=== PATIENT | female | born 1995 | race Two or more races ===

== ENCOUNTER 2017-11-14 09:56 | Observation (INO) | payer OTHER ==
[2017-11-14] MEDS ORDERED: morphine CARPU-JECT 2 MG/1 ML DISP.SYRIN IVPUSH ONE (10:50)
[2017-11-14] MEDS ORDERED: ACETAMINOPHEN 1000 MG/100 ML VIAL (NON FORMULARY) IVPB ONE (10:51)
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
[2017-11-14] MEDS ORDERED: morphine CARPU-JECT 2 MG/1 ML DISP.SYRIN ONE ×2 (10:55→15:56)
[2017-11-14 11:15] LABS: BASO % 0.6 % (0-2.0); EOS % 1.1 % (0-4.5); HEMOGLOBIN 12.6 GM/dL (10.7-15.3); LYMPH % 13.5 % (8-40); MCH 26.4 pg (25.7-33.7); MCHC 33.1 g/dl (32.0-36.0); MEAN CELL VOLUME 79.7 fl (80-96); MONO % 4.8 % (3.8-10.2); PLATELET COUNT 293 K/MM3 (134-434); RBC 4.77 M/mm3 (3.60-5.2)
[2017-11-14 11:41] LABS: ALBUMIN 3.6 g/dl (3.4-5.0); ANION GAP 10 (8-16); BLOOD UREA NITROGEN 8 mg/dL (7-18); CALCIUM 8.9 mg/dL (8.5-10.1); CHLORIDE 106 mmol/L (98-107); CO2 21 mmol/L (21-32); CREATININE 0.5 mg/dL (0.55-1.02); GLUCOSE,RANDOM 90 mg/dL (74-106); POTASSIUM 4.1 mmol/L (3.5-5.1); SGOT/AST 15 U/L (15-37); SGPT/ALT 25 U/L (12-78); SODIUM 137 mmol/L (136-145)
[2017-11-14] MEDS ORDERED: morphine CARPU-JECT 4 MG/1 ML DISP.SYRIN IVPUSH ONE ×2 (11:49→15:55)
[2017-11-14] MEDS ORDERED: morphine SULFATE 4 MG/ML VIAL ONE (11:54)
[2017-11-14 11:59] LABS: ALK PHOS 73 U/L (45-117); BILIRUBIN,TOTAL 0.3 mg/dL (0.2-1.0); TOT PROT 7.9 g/dl (6.4-8.2)
--- NOTE | 2017-11-14 13:00 | PDOC ---
Attending Attestation - Resident Resident Name: Stanislav Diaz - ED Attending Attestation I have performed the following: I have examined & evaluated the patient, The case was reviewed & discussed with the resident, I agree w/resident's findings & plan, Exceptions are as noted - HPI HPI: 11/14/17 12:52 22 F @ 15 weeks presents to ED with lower back pain. Pt states she was cleaning last night when she felt a sharp pain in her R lower back. She states the pain shoots down her R leg. Pt also endorses numbness in her R leg. Denies weakness or numbness in her L leg. Pt states that she has h/o herniated discs. She denies incontinence or difficulty controlling bowel/bladder. Denies saddle anesthesia. - Physicial Exam PE: 11/14/17 13:00 "GENERAL: Awake, alert, and fully oriented, in no acute distress. HEAD: No signs of trauma EYES: PERRLA, EOMI, sclera anicteric, conjunctiva clear ENT: Auricles normal inspection, hearing grossly normal, nares patent, oropharynx clear without exudates. Moist mucosa NECK: Nontender, no stepoffs, Normal ROM, supple, no lymphadenopathy, JVD, or masses LUNGS: Breath sounds equal, clear to auscultation bilaterally. No wheezes, and no crackles HEART: Regular rate and rhythm, normal S1 and S2, no murmurs, rubs or gallops ABDOMEN: Soft, nontender, normoactive bowel sounds. No guarding, no rebound. No masses EXTREMITIES: Normal range of motion, no edema. No clubbing or cyanosis. No cords, erythema, or tenderness BACK: + R paraspinal tenderness in lumbar spine, no midline tenderness, no stepoffs NEUROLOGICAL: Cranial nerves II through XII intact. 5/5 strength and sensation in all extremities, Normal speech, normal gait, normal cerebellar function SKIN: Warm, Dry, normal turgor, no rashes or lesions noted. " - Medical Decision Making 11/14/17 13:00 22 F with R lower back pain after bending over. Likely sciatic nerve vs lumbar radiculopathy. No evidence of cauda equina or cord compression. - Pain control - Reassess Pt with intractable back pain s/p morphine 6mg IV. Will admit for further evaluation MRI L spine ordered
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
[2017-11-14 17:50] VITALS: BMI 35.4
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
[2017-11-14] MEDS: HEPARIN NA (PORCINE) 5,000 UNITS/ML 1ML VIAL SQ SCH (21:53)
[2017-11-14] MEDS: ACETAMINOPHEN 325 MG TABLET (FP) PO PRN (21:54)
[2017-11-15] MEDS: ACETAMINOPHEN 325 MG TABLET (FP) PO PRN (05:18)
[2017-11-15] MEDS: PRENATAL VITAMINS W/ FOLIC ACID TABLET (FP) PO SCH (09:39)
[2017-11-15] MEDS: HEPARIN NA (PORCINE) 5,000 UNITS/ML 1ML VIAL SQ SCH ×2 (09:39→21:21)
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
[2017-11-15] MEDS: ACETAMINOPHEN WITH CODEINE 300MG/30MG TABLET PO PRN ×2 (12:39→21:23)
--- NOTE | 2017-11-15 14:25 | PN ---
Progress Note, Physician - Current Medication List Current Medications: Active Medications Acetaminophen (Tylenol -) 650 mg PO Q6H PRN PRN Reason: FEVER Last Admin: 11/15/17 05:18 Dose: 650 mg Acetaminophen/Codeine Phosphate (Tylenol # 3 -) 1 tab PO Q6H PRN PRN Reason: PAIN LEVEL 1 - 3 Last Admin: 11/15/17 12:39 Dose: 1 tab Heparin Sodium (Porcine) (Heparin -) 5,000 unit SQ BID JN Last Admin: 11/15/17 09:39 Dose: 5,000 unit Multivit/Folic Acid/Iron ( Vitamins (Sjr) -) 1 tab PO DAILY [facility] Last Admin: 11/15/17 09:39 Dose: 1 tab - Objective Vital Signs: Vital Signs Temperature 98 F 11/15/17 09:34 Pulse Rate 68 11/15/17 09:34 Respiratory Rate 20 11/15/17 09:34 Blood Pressure 96/45 11/15/17 09:34 O2 Sat by Pulse Oximetry (%) 99 11/15/17 09:00 Constitutional: Yes: No Distress HENT: Yes: Atraumatic Neck: Yes: Supple Respiratory: Yes: CTA Bilaterally Gastrointestinal: Yes: Normal Bowel Sounds Extremities: Yes: WNL Neurological: Yes: Paresthesia (rle) Labs: CBC, BMP 11/14/17 10:50 11/14/17 10:50 Problem List - Problems (1) Intractable neuropathic pain of lumbosacral origin Assessment/Plan: prn tylenol will get neuro eval and pain management Code(s): M54.16 - RADICULOPATHY, LUMBAR REGION (2) with 15 completed weeks gestation 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
[2017-11-16] MEDS: ACETAMINOPHEN WITH CODEINE 300MG/30MG TABLET PO PRN ×2 (08:23→22:28)
[2017-11-16] MEDS: PRENATAL VITAMINS W/ FOLIC ACID TABLET (FP) PO SCH (11:13)
[2017-11-16] MEDS: HEPARIN NA (PORCINE) 5,000 UNITS/ML 1ML VIAL SQ SCH ×2 (11:13→21:27)
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
[2017-11-16] MEDS: predniSONE 20 MG TABLET (UD) PO SCH (18:39)
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
--- NOTE | 2017-11-16 22:51 | PN ---
Progress Note, Physician - Current Medication List Current Medications: Active Medications Acetaminophen (Tylenol -) 650 mg PO Q6H PRN PRN Reason: FEVER Last Admin: 11/15/17 05:18 Dose: 650 mg Acetaminophen/Codeine Phosphate (Tylenol # 3 -) 1 tab PO Q6H PRN PRN Reason: PAIN LEVEL 1 - 3 Last Admin: 11/16/17 22:28 Dose: 1 tab Heparin Sodium (Porcine) (Heparin -) 5,000 unit SQ BID [facility] Last Admin: 11/16/17 21:27 Dose: 5,000 unit Prednisone (Deltasone -) 30 mg PO DAILY [facility] Last Admin: 11/16/17 18:39 Dose: 30 mg Multivit/Folic Acid/Iron ( Vitamins (Sjr) -) 1 tab PO DAILY [facility] Last Admin: 11/16/17 11:13 Dose: 1 tab - Objective Vital Signs: Vital Signs Temperature 99.3 F 11/16/17 16:30 Pulse Rate 75 11/16/17 16:30 Respiratory Rate 20 11/16/17 16:30 Blood Pressure 105/56 11/16/17 16:30 O2 Sat by Pulse Oximetry (%) 99 11/15/17 17:00 Labs: CBC, BMP 11/14/17 10:50 11/14/17 10:50
[2017-11-17 09:45] VITALS: TEMP 98.4
[2017-11-17] MEDS: HEPARIN NA (PORCINE) 5,000 UNITS/ML 1ML VIAL SQ SCH (09:54)
[2017-11-17] MEDS: predniSONE 20 MG TABLET (UD) PO SCH (09:54)
[2017-11-17] MEDS: PRENATAL VITAMINS W/ FOLIC ACID TABLET (FP) PO SCH (09:54)
[2017-11-17] MEDS ORDERED: predniSONE 20 MG TABLET (UD) PO SCH (10:00)
[2017-11-17] MEDS: ACETAMINOPHEN WITH CODEINE 300MG/30MG TABLET PO PRN (14:23)
[2017-11-17 14:39] VITALS: BP 95/51; PULSE 72
--- NOTE | 2017-11-18 15:46 | DS ---
Physical Examination Vital Signs: Vital Signs Temperature 98.4 F 11/17/17 14:38 Pulse Rate 72 11/17/17 14:38 Respiratory Rate 18 11/17/17 14:38 Blood Pressure 95/51 11/17/17 14:38 O2 Sat by Pulse Oximetry (%) 95 11/17/17 13:18 Labs: CBC, BMP 11/14/17 10:50 11/14/17 10:50 Discharge Summary Reason For Visit: INTRACTABLE LUMBAR PAIN, 15 WKS PREG Condition: Good - Instructions Diet, Activity, Other Instructions: Regular diet Follow up with Dr Belle in 1 week See your pain management doctor Referrals: Latonia Belle MD [Staff Physician] - 1 Week Rafael Puri MD [Staff Physician] - 1 Week (Call Dr Puri re Physical therapy in his office) Disposition: HOME - Home Medications Comprehensive Discharge Medication List: Ambulatory Orders Acetaminophen [Tylenol .Regular Strength -] 650 mg PO Q6H PRN #90 tablet Vitamins (Sjr) - 1 tab PO DAILY tablet 11/17/17 predniSONE [Deltasone -] 10 mg PO DAILY #20 tablet 11/17/17 predniSONE [Deltasone -] 30 mg PO DAILY #0 tablet 11/17/17 dc home
== END 2017-11-17 17:34 | disposition home or self-care (01) ==
LOC: JER 09:56 → UNDOADMIN 14:34 → JERBED 14:34 → J8W 16:56 → INTOOBSV 17:14 → J8W 17:14 → JERBED 17:14
PROVIDERS: ADMIT Internal Medicine; ATTEND Internal Medicine
PROC: 3E033NZ Introduction of Analgesics, Hypnotics, Sedatives into Peripheral Vein, Percutaneous Approach (ICD-10-PCS; principal; 2017-11-14)
PROC: 3E013GC Introduction of Other Therapeutic Substance into Subcutaneous Tissue, Percutaneous Approach (ICD-10-PCS; 2017-11-14)
DX: O26.892 Other specified pregnancy related conditions, second trimester (principal); Z3A.15 15 weeks gestation of pregnancy; M47.26 Other spondylosis with radiculopathy, lumbar region; M51.26 Other intervertebral disc displacement, lumbar region; J45.909 Unspecified asthma, uncomplicated; Z87.891 Personal history of nicotine dependence; Z88.8 Allergy status to other drugs, medicaments and biological substances; Z91.013 Allergy to seafood
CPT/HCPCS: 36415; 72148-TC; 80053; 84702; 85025; 96372; 96374; 96375; 96376; 97116-GP; 97161-GP; 99283-25; G0378; J0131; J1644

== ENCOUNTER 2020-05-23 22:37 | Emergency (ER) | payer OTHER ==
[2020-05-23 23:00] VITALS: BMI 31.5
[2020-05-23] MEDS ORDERED: ACETAMINOPHEN 1000 MG/100 ML VIAL (NON FORMULARY) IVPB ONE (23:11)
[2020-05-23] MEDS ORDERED: ACETAMINOPHEN INJECTION 100 ML IVPB ONE (23:21)
[2020-05-23 23:40] LABS: BASO % 0.8 % (0-2.0); EOS % 2.2 % (0-4.5); HEMATOCRIT 38.3 % (32.4-45.2); HEMOGLOBIN 12.2 GM/dL (10.7-15.3); LYMPH % 10.7 % (8-40); MCH 26.6 pg (25.7-33.7); MCHC 31.8 g/dl (32.0-36.0); MEAN CELL VOLUME 83.6 fl (80-96); MEAN PLT VOLUME 8.4 fl (7.5-11.1); MONO % 5.7 % (3.8-10.2); NEUT % 80.6 % (42.8-82.8); PLATELET COUNT 291 K/MM3 (134-434); RBC 4.59 M/mm3 (3.60-5.2); RDW 13.7 % (11.6-15.6); WHITE BLOOD COUNT 11.7 K/mm3 (4.0-10.0)
[2020-05-23 23:55] LABS: POTASSIUM 3.7 mmol/L (3.5-5.1)
[2020-05-23 23:56] LABS: ALBUMIN 4.1 g/dl (3.4-5.0)
[2020-05-23 23:57] LABS: CALCIUM 8.9 mg/dL (8.5-10.1)
[2020-05-24 00:01] LABS: CREATININE 0.7 mg/dL (0.55-1.3)
[2020-05-24 00:02] LABS: BILIRUBIN,TOTAL 0.4 mg/dL (0.2-1); TOT PROT 7.8 g/dl (6.4-8.2)
[2020-05-24 01:42] LABS: EPI CELLS >36 /uL (0-25.1); HYALINE CASTS 34 /uL (0-3.1); URINE APPEARANCE CLEAR; URINE BACTERIA 138 /uL (0-1359); URINE BILIRUBIN NEGATIVE (NEGATIVE); URINE COLOR YELLOW; URINE GLUCOSE (UA) NEGATIVE (NEGATIVE); URINE KETONE NEGATIVE (NEGATIVE); URINE LEUK ESTERASE NEGATIVE (NEGATIVE); URINE NITRITE NEGATIVE (NEGATIVE); URINE PROTEIN NEGATIVE (NEGATIVE); URINE RBC 9 /uL (0-23.9); URINE WBC 9 /uL (0-25.8)
[2020-05-24] MEDS ORDERED: KETOROLAC TROMETHAMINE 15 MG/ML VIAL IVPUSH ONE (01:47)
[2020-05-24] MEDS ORDERED: KETOROLAC TROMETHAMINE 15 MG/ML VIAL ONE (01:48)
[2020-05-24 02:17] VITALS: BP 110/68; PULSE 84; TEMP 98.2
== END 2020-05-24 02:17 | disposition home or self-care (01) ==
LOC: JER 22:37
PROC: 3E033NZ Introduction of Analgesics, Hypnotics, Sedatives into Peripheral Vein, Percutaneous Approach (ICD-10-PCS; principal; 2020-05-23)
PROC: 3E0333Z Introduction of Anti-inflammatory into Peripheral Vein, Percutaneous Approach (ICD-10-PCS; 2020-05-24)
DX: K80.51 Calculus of bile duct without cholangitis or cholecystitis with obstruction (principal)
CPT/HCPCS: 36415; 76700-TC; 80053; 81003; 83690; 84703; 85025; 87086; 96374; 96375; 99285-25; J0131